=== PATIENT | female | born 1965 | race Two or more races ===

== ENCOUNTER 2025-01-15 15:17 | Emergency (ER) | payer OTHER ==
[~2025-01-15] VITALS: Ht 154.9 cm; Wt 63.0 kg
[2025-01-15 16:10] VITALS: BP 223/97; PULSE 88; RESP 18; TEMP 97.9; O2SAT 97
--- NOTE | 2025-01-15 16:45 | ED.PDOC ---
History of Present Illness HPI Comments 59F presents to the ER w/ prior MHx of HTN, DM:SHx of Appendectomy, Tubal ligation, Right Elbow Sx and the c/c of LE. Pt reports on having right flank pain which radiates down the right LE for 4 days. Pt states on the pain being constant. Pain type of a 9/10. In triage the pt had an elevated BP and was given clonidine. Denies chills, fever, N/V/D, SOB, CP. Denies any other associated symptom's, modifiers, or recent injuries or sick contact at this time. Chief Complaint: Lower Extremity Time Seen by MD: 16:30 Reviewed Notes: Nurses Notes, Medications, Allergies Allergies: Coded Allergies: Penicillins (Verified Allergy, Mild, 01/15/25) Information Source: Patient Mode of Arrival: Ambulatory Severity: Moderate Timing: Days Duration: Since onset, Days Prehospital treatment: None Past Medical History PAST MEDICAL HISTORY: DM, HTN Surgical History: Appendectomy, Tubal Ligation Surgical History (Other): right elbow pain TELEPHONIC NURSE CASE MANAGER History: No Pertinent TELEPHONIC NURSE CASE MANAGER History Family History Family History: Reviewed,noncontributory to illness, Unknown Social History Smoker: Non-Smoker Alcohol: Denies ETOH Use Drugs: Denies Drug Use Lives In: Home Constitutional: denies: chills, diaphoresis, fatigue, fever, malaise, sweats, weakness, others EENTM: denies: blurred vision, double vision, ear bleeding, ear discharge, ear drainage, ear pain, ear ringing, eye pain, eye redness, hearing loss, mouth pain, mouth swelling, nasal discharge, nose bleeding, nose congestion, nose pain, photophobia, tearing, throat pain, throat swelling, voice changes, others Respiratory: denies: cough, hemoptysis, orthopnea, SOB at rest, shortness of breath, SOB with excertion, stridor, wheezing, others Cardiovascular: denies: chest pain, dizzy spells, diaphoresis, Dyspnea on exertion, edema, irregular heart beat, left arm pain, lightheadedness, palpitations, PND, syncope, others Gastrointestinal: denies: abdomen distended, abdominal pain, blood streaked bowels, constipated, diarrhea, dysphagia, difficulty swallowing, hematemesis, melena, nausea, poor appetite, poor fluid intake, rectal bleeding, rectal pain, vomiting, others Genitourinary: reports: flank pain; denies: abnormal vagina bleeding, burning, dyspareunia, dysuria, frequency, hematuria, incontinence, pain, , vagina discharge, urgency, others Neurological: denies: dizziness, fainting, headache, left sided numbness, left sided weakness, numbness, paresthesia, pre-existing deficit, right sided numbness, right sided weakness, seizure, speech problems, tingling, tremors, weakness, others Musculoskeletal: denies: back pain, gout, joint pain, joint swelling, muscle pain, muscle stiffness, neck pain, others Integumetry: denies: bruises, change in color, change in hair/nails, dryness, laceration, lesions, lumps, rash, wounds, others Allergic/Immunocompromised: denies: Difficulty Healing, Frequent Infections, Hives, Itching, others Hematologic/Lymphatic: denies: anemia, blood clots, easy bleeding, easy bruising, swollen glands, others Endocrine: denies: excessive hunger, excessive sweating, excessive thirst, excessive urination, flushing, intolerance to cold, intolerance to heat, unexp lained weight gain, unexplained weight loss, others Psychiatric: denies: anxiety, bipolar disorder, depression, hopeless, panic disorder, schizophrenia, sleepless, suicidal, others All Other Systems: Reviewed and Negative Physical Exam General Appearance: Moderate Distress HEENT: Normal ENT Inspection, Pharynx Normal, TMs Normal Neck: Full Range of Motion, Non-Tender, Normal, Normal Inspection Respiratory: Chest Non-Tender, Lungs Clear, No Accessory Muscle Use, No Respiratory Distress, Normal Breath Sounds Cardiovascular: No Edema, No JVD, No Murmur, No Gallop, Normal Peripheral Pulses, Regular Rate/Rhythm Breast Exam: Deferred Gastrointestinal: No Organomegaly, Non Tender, No Pulsatile Mass, Normal Bowel Sounds, Soft Genitalia: Deferred Pelvic: Deferred Rectal: Deferred Extremities: No calf tenderness, Normal capillary refill, No pedal edema Musculoskeletal : Apperance: Normal Neurologic: Alert, fiberline supervisor II-XII nml as Tested, Motor Weakness, Normal Affect, Normal Mood, No Sensory Deficits Cerebellar Function: Normal Reflexes: Normal Skin: Dry, Normal Color, Warm Lymphatic: No Adenopathy Was a procedure done? Was a procedure done?: No Differential Dx Considerations may include: Generalized weakness, electrolyte imbalance, dehydration X-Ray, Labs, Meds, VS Vital Signs Date Time Temp Pulse Resp B/P (MAP) Pulse Ox O2 Delivery O2 Flow Rate FiO2 01/15/25 17:28 142/73 01/15/25 16:13 Room Air* 0 21 01/15/25 16:10 97.9 88 18 223/97 (139) 97 97.9 01/15/25 16:10 223/97 01/15/25 15:18 97.9 88 18 223/97 96 97.9 Lab Test 01/15/25 21:05 01/15/25 19:46 Range/Units White Blood Count Pending Red Blood Count Pending Hemoglobin Pending Hematocrit Pending Mean Corpuscular Volume Pending Mean Corpuscular Hemoglobin Pending Mean Corpuscular Hemoglobin Concent Pending Red Cell Distribution Width Pending Platelet Count Pending Mean Platelet Volume Pending Neutrophils (%) (Auto) Pending Lymphocytes (%) (Auto) Pending Monocytes (%) (Auto) Pending Basophils (%) (Auto) Pending Neutrophils # (Auto) Pending Lymphocytes # (Auto) Pending Monocytes # (Auto) Pending Sodium Level Pending Potassium Level Pending Chloride Level Pending Carbon Dioxide Level Pending Anion Gap Pending Blood Urea Nitrogen Pending Creatinine Pending Glomerular Filtration Rate Calc Pending BUN/Creatinine Ratio Pending Serum Glucose Pending Calcium Level Pending Urine Color Yellow Yellow Urine Clarity Clear Clear Urine pH 5.5 5.0-9.0 Urine Specific [place] 1.026 1.001-1.035 Urine Protein Negative Negative Urine Ketones Trace Negative Urine Blood Negative Negative /uL Urine Nitrite Negative Negative Urine Bilirubin Negative Negative Urine Urobilinogen Normal Negative mg/dL Urine Leukocyte Esterase Negative Negative /uL Urine RBC 1 0 - 4 /hpf Urine Microscopic WBC 2 0-5 /HPF Urine Squamous Epithelial Cells Few <5 /hpf Urine Amorphous Crystals Few None Seen /hpf Urine Bacteria Few H None Seen /hpf Urine Mucus Few None Seen Urine Glucose 1+ H Normal mg/dL Current Medications Medications (Trade) Dose Ordered Sig/Beatriz Route Start Time Stop Time Status Last Admin Clonidine HCl (Catapres Tablet) 0.2 mg ONCE ONCE PO 01/15/25 15:30 01/15/25 15:31 DC 01/15/25 16:10 The patient's labs are pending The urine test is pending The patient was given clonidine 0.2 mg by mouth The CAT scan of the abdomen and pelvis shows: IMPRESSION: 1. No CT evidence of an acute abdominal/pelvic process. 2. No hydroureteronephrosis or nephroureterolithiasis. 3. Cholelithiasis without definitive CT evidence of acute cholecystitis however correlate with clinical exam. 4. Jqle-hk-[id number] stool burden. Correlate for constipation. 5. No intraperitoneal ascites. At this time, the patient is being admitted Images Reviewed?: Images reviewed and evaluated by me Time of 1ST Reevaluation: 17:00 Reevaluation 1ST: Unchanged Patient Education/Counseling: Diagnosis, Treatment, Prognosis Family Education/Counseling: No Family Present SEPSIS Sepsis Screen Date sepsis recognized/suspect: Jan 15, 2025 Time Sepsis recognized/suspect: 152 Recent Procedure: No On Antibiotic Therapy: No Respiratory Rate >20: No Heart Rate >90: No Temp<36 C (96.8 F) or >38.3 C: No SBP <90 or MAP <65 mmHG: No New Acute Mental Status Change: No Is the patient on CPAP, BIPAP,: No Physician Orders Ct Ab Pel Wo Con-No Oral Or Iv (01/15/25 17:01) Complete Blood Count (01/15/25 20:51) Basic Metabolic Panel (01/15/25 20:51) Heplock Iv (01/15/25 20:51) Vital Signs Date Time Temp Pulse Resp B/P (MAP) Pulse Ox O2 Delivery O2 Flow Rate FiO2 01/15/25 17:28 142/73 01/15/25 16:13 Room Air* 0 21 01/15/25 16:10 97.9 88 18 223/97 (139) 97 97.9 01/15/25 16:10 223/97 01/15/25 15:18 97.9 88 18 223/97 96 97.9 Laboratory Tests Test 01/15/25 21:05 White Blood Count Pending Medications Medications Dose Ordered Sig/Beatriz Route Start Time Stop Time Status Last Admin Dose Admin Clonidine HCl 0.2 mg ONCE ONCE PO 01/15/25 15:30 01/15/25 15:31 DC 01/15/25 16:10 Departure 1 Departure Time of Disposition: 21:50 Impression: Primary Impression: Intractable abdominal pain Additional Impression: Cholelithiasis Qualified Codes: K80.20 - Calculus of gallbladder without cholecystitis without obstruction Disposition: 09 ADMITTED INPATIENT Admit to: Med Surg Condition: Fair Critical Care Note Critical Care Time?: No Stability Stability form required: Yes Unstable for transfer: ED Physician Assesment (Clinical assesment) Heart Score Heart Score: Heart Score Response (Comments) Value History N/A 0 EKG N/A 0 Age N/A 0 Risk Factors N/A 0 Troponin N/A 0 Total 0 I personally scribed for LISA BLACKMON MD ([email or web address]) on 01/15/25 at 16:45. Electronically submitted by Ezra Lundberg ([employer]). I personally scribed for LISA BLACKMON MD ([email or web address]) on 01/15/25 at 17:03. Electronically submitted by Ezra Lundberg ([employer]). LISA BLACKMON MD Jan 15, 2025 16:45
[2025-01-15] MEDS: KETOROLAC TROMETH 60MG/2ML VIAL IM ONE (17:31)
--- NOTE | 2025-01-15 18:27 | DVH ---
EXAM: CT CT AB PEL WO CON-NO ORAL OR IV INDICATION: right flank pain TECHNIQUE: Volumetric multidetector CT images of the abdomen and pelvis were obtained without contras t. All CT scans at this facility use dose modulation, iterative reconstruction, and/or weight based d osing when appropriate to reduce radiation dose to as low as reasonably achievable. COMPARISON: None FINDINGS: [LOWER CHEST]: Small oval-shaped 4 mm pulmonary nodule in the left lower lobe. Likely benign. Trace p ericardial fluid. [LIVER]: Normal hepatic size without suspicious focal lesion. [GALLBLADDER AND BILIARY TREE]: Cholelithiasis [SPLEEN]: Unremarkable. [PANCREAS]: Unremarkable. [ADRENAL GLANDS]: Unremarkable [KIDNEYS]: No hydronephrosis. No nephroureterolithiasis. [BLADDER]: Unremarkable for the degree distention. [REPRODUCTIVE ORGANS]: Retroverted uterus [BOWEL/MESENTERY]: Stomach is normal. No CT evidence of bowel obstruction. [id number] stool bur den. Nonvisualization of the appendix. [ASCITES]: Absent [LYMPHADENOPATHY]: No pathologically enlarged lymph nodes by CT size criteria [VASCULATURE]: No aneurysmal dilatation. [ABDOMINAL WALL]: Unremarkable. [MUSCULOSKELETAL]: No acute fracture or aggressive focal osseous lesion. Multifocal degenerative [place] of the visualized spine. IMPRESSION: 1. No CT evidence of an acute abdominal/pelvic process. 2. No hydroureteronephrosis or nephroureterolithiasis. 3. Cholelithiasis without definitive CT evidence of acute cholecystitis however correlate with clinic al exam. 4. [id number]-[id number] stool burden. Correlate for constipation. 5. No intraperitoneal ascites.
[2025-01-15 20:11] LABS: Urine Amorphous Crystal FEW /hpf (None Seen); Urine Protein, UAD Negative (Negative)
[2025-01-15] MEDS ORDERED: ONDANSETRON HCL 4 MG/2 ML VIAL IV ONE (21:00)
[2025-01-15] MEDS ORDERED: MORPHINE SULFATE 4 MG/ML SYR/VIAL IV ONE (21:00)
[2025-01-15 21:18] LABS: Hematocrit 43.9 % (36.0-46.0); Hemoglobin 15.4 g/dL (12.2-16.2); Mean Corpuscular Hemoglobin 30.4 pg (28.0-32.0); Mean Corpuscular Volume 86.5 fL (80.0-100.0); Nucleated Red Blood Cells % 0.2 %
[2025-01-15 21:25] LABS: Potassium 4.1 mmol/L (3.5-5.1)
[2025-01-15 21:26] LABS: Anion Gap 9 (5-15); Calcium 10.0 mg/dL (8.7-10.4); Carbon Dioxide 28 mmol/L (20-31)
[2025-01-15 21:31] LABS: BUN/Creatinine Ratio 15.1 (10.0-20.0); Blood Urea Nitrogen 11 mg/dL (9-23)
[2025-01-15 21:55] LABS: Chloride 98 mmol/L (98-107); Glucose 208 mg/dL (74-106); Sodium 135 mmol/L (136-145)
== END 2025-01-15 22:01 | disposition left against medical advice (07) ==
LOC: ER 15:17
DX: K80.20 Calculus of gallbladder without cholecystitis without obstruction (principal); R10.84 Generalized abdominal pain; E11.9 Type 2 diabetes mellitus without complications; I10 Essential (primary) hypertension; Z88.0 Allergy status to penicillin; Z90.49 Acquired absence of other specified parts of digestive tract; Z79.899 Other long term (current) drug therapy
CPT/HCPCS: 36415; 74176; 80048; 81001; 85025; 99284; J1885